=== PATIENT | male | born 1955 | race Caucasian/White ===

== ENCOUNTER 2017-03-31 15:41 | Emergency (ER) | payer MEDICARE ==
[~2017-03-31 15:41] MED LIST: LORTAB 7.5-3251 EACH PO; MEDROL4 M1 PO; PRILOSEC20 MG PO; PRINIVIL20 MG PO; PROAIR HFA8.5 GM INH; TRAZODONE HCL50 MG PO; VALIUM5 MG PO; ZEBETA5 MG PO
== END 2017-03-31 17:36 | disposition home or self-care (01) ==
LOC: ER 15:41
DX: J44.1 Chronic obstructive pulmonary disease with (acute) exacerbation (principal); I10 Essential (primary) hypertension; K21.9 Gastro-esophageal reflux disease without esophagitis; F17.210 Nicotine dependence, cigarettes, uncomplicated; Z98.52 Vasectomy status; Z79.899 Other long term (current) drug therapy; Z88.6 Allergy status to analgesic agent; Z88.8 Allergy status to other drugs, medicaments and biological substances
CPT/HCPCS: 36415; 94640; 96361; 96374